=== PATIENT | male | born 1945 | race Caucasian/White ===

== ENCOUNTER 2019-10-20 17:21 | Emergency (ER) | payer MEDICARE, SELFPAY ==
--- NOTE | 2019-10-20 17:24 | ED.CPR ---
HPI - CPR General Chief Complaint: Cardiac Arrest/CPR Stated Complaint: code Time Seen by Provider: 10/20/19 17:22 Source: family and EMS Mode of arrival: EMS Limitations: clinical condition History of Present Illness HPI narrative: A 74 y/o male presents to the ED with c/o CPR. Per EMS, 911 was contacted by the patient's . The patient was down for approximately 15 minutes (1630) before PD arrived and started CPR at 1640. EMS administered 6 rounds of Epinephrine and Narcan x2. He was shocked twice when the patient was in [place]. EMS notes that the patient has a PMHx of HTN. The patient's told EMS that he has had diarrhea for the past 2 days. A complete HPI is limited due to the patient's clinical condition. Pt at 1725. complaint: found unresponsive Onset (ago): hour(s) (Today) Time: 16:30 Timing confirmed by: spouse Place: home AED applied by bystander/ad taker: Yes Shock advised: Yes Number of shocks delivered: 2 Downtime before ACLS arrival (mins): 15 Initial findings in the field: unresponsive Associated symptoms: other (Diarrhea) Known history of: other (HTN) Treatments prior to arrival: chest compressions, epinephrine mgs # and other (Narcan) Related Data Allergies Allergy/AdvReac Type Severity Reaction Status Date / Time No Known Allergies Allergy Unverified 11/18/16 11:28 Review of Systems Review of Systems: All systems reviewed & are unremarkable except as noted in HPI and below ROS unobtainable: other (unobtainable due to unresponsiveness) Gastrointestinal: Gastrointestinal: Reports diarrhea PMFSH Past Medical History Medical History (Updated 10/20/19 @ 19:04 by Aida Crabtree MD) BPH (benign prostatic hyperplasia) Foot fracture, left HTN (hypertension) Hyperlipidemia Surgical History Surgical History (Updated 10/20/19 @ 17:33 by Abril Aguilar) History of inguinal hernia repair Family History Family History Mother Diabetes mellitus, Onset Age: 89 Father Family history of aortic aneurysm, Onset Age: 79 Family history of lung cancer, Onset Age: 79 Social History Social History (Updated 10/20/19 @ 17:33 by Abril Aguilar) Smoking packs per day: 1.5 Smoking cigarettes per day: 30.0 Smoking status: Former smoker Second hand tobacco smoke exposure: Yes Smoking end date: 08/08/85 Alcohol intake: current Exam Const: General: ill appearing acutely Other: patient intubated HENMT: Mouth: Yes other (aditi tube intubation) Eyes: Pupils: Dilated pupils bilaterally, Fixed pupils bilaterally and Pupil size comments Resp: Auscultation: diminished lung sounds Other: no respiratory effort, patient being bag Cardio: Other: pulseless GI: Inspection: distended Auscultation: Hypoactive bowel sounds present Skin: Other: cyanotic Neuro: Other: patient unresponsive Course Course Emergency Course: Patient presented in cardiac arrest. Patient recently returned from flight. He was down approximately 15 minutes prior to PD arrival and CPR. Patien had a down time of approximately 50 minutes prior to arrival. On arrival he still had no pulse . He has had no cardiac activity on ultrasound. No spontaneous respiratorions. See code sheet for details. I discussed with family patient's . I spoke to daughter over the phone. Discharge Plan Discharge Clinical Impression: Cardiac arrest Patient Disposition: Condition: Follow-up/Referrals: Felix Falcon MD [Primary Care Provider] - Quality [place] Coma Scale Eyes: No Response Verbal: No Response Motor: No Response [place] Coma Total Score: 3
--- NOTE | 2019-10-20 17:50 | PC.NURSE ---
Title Investigator called at this time, states they will call back
--- NOTE | 2019-10-20 17:59 | PC.NURSE ---
MTS contacted at this time. They state he is a candidate for donation and states pt can go [facility] [place]. Awaiting oil gauger to call back
--- NOTE | 2019-10-20 18:06 | PC.NURSE ---
Pt family has chosen [facility] in [place].
--- NOTE | 2019-10-20 19:09 | PC.NURSE ---
Manager Vehicle called back and got report from this RN. Manager Vehicle states patient may be released to home
--- NOTE | 2019-10-20 19:12 | PC.NURSE ---
Home called at this time. They states the director community organization will be calling back
--- NOTE | 2019-10-20 19:34 | PC.NURSE ---
[place] called [place] [facility] 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
== END 2019-10-20 19:30 | disposition expired ==
PROVIDERS: Emergency Provider General Practice; PCP Emergency Medicine
DX: I46.9 Cardiac arrest, cause unspecified (principal); N40.0 Benign prostatic hyperplasia without lower urinary tract symptoms; I10 Essential (primary) hypertension; E78.5 Hyperlipidemia, unspecified; Z87.891 Personal history of nicotine dependence
CPT/HCPCS: 92950; 99285; J0171; J2310